=== PATIENT | female | born 1940 | race Caucasian/White ===

== ENCOUNTER 2024-12-19 10:49 | Inpatient (IN) | payer MEDICARE ==
[2024-12-19] VITALS (23 sets, daily range): BP systolic 67–141; BP diastolic 30–121; TEMP 97.6; O2SAT 96–100
[~2024-12-19] VITALS: Ht 160 cm; Wt 59.0 kg
[2024-12-19] MEDS ORDERED: PANTOPRAZOLE SODIUM 40 MG VIAL ONE (11:15)
[2024-12-19 11:30] LABS: BASOPHILS # (AUTO) 0.1 K/UL (0.0-0.2); BASOPHILS % (AUTO) 1.1 % (0.0-2.0); EOSINOPHILS # (AUTO) 0.1 K/uL (0.0-0.7); EOSINOPHILS % (AUTO) 0.5 % (0.0-7.0); LYMPHOCYTES # (AUTO) 1.4 K/uL (0.8-4.8); LYMPHOCYTES % (AUTO) 12.7 % (20.5-51.5); MEAN CORPUSCULAR HEMOGLOBIN 28.4 uug (24.7-32.8); MEAN CORPUSCULAR HGB CONC 32 g/dL (32.3-35.6); MEAN CORPUSCULAR VOLUME 88.1 fL (75.5-95.3); MONOCYTES # (AUTO) 0.9 K/uL (0.1-1.30); MONOCYTES % (AUTO) 7.9 % (0.0-11.0); NEUTROPHILS # (AUTO) 8.5 K/uL (1.8-8.9); NEUTROPHILS % (AUTO) 77.8 % (38.5-71.5); PLATELET COUNT (AUTO) 345 K/uL (179-408)
[2024-12-19] MEDS: PANTOPRAZOLE SODIUM 40 MG VIAL IV ONE (11:40)
[2024-12-19] MEDS: IV NORMAL SALINE 1000 ML BAG IV ONE (11:40)
[2024-12-19 11:41] LABS: CALCIUM 7.3 mg/dL (8.5-10.1); CARBON DIOXIDE 25 mmol/L (21-32); CHLORIDE 111 mmol/L (98-107); CREATININE 0.7 mg/dL (0.6-1.3); GLUCOSE 131 mg/dL (74-106); SODIUM SERUM 144 mmol/L (136-145); UREA NITROGEN, BLOOD 42 mg/dL (7-18)
[2024-12-19 11:44] LABS: DIFFERENTIAL COMMENT 1; RED BLOOD CELL COUNT(AUTO) 1.89 MIL/uL (3.63-4.92)
[2024-12-19 11:47] LABS: HEMATOCRIT 16.7 % (31.2-41.9); HEMOGLOBIN 5.4 g/dL (10.9-14.3)
[2024-12-19 12:05] LABS: ALANINE AMINOTRANSFERASE 6 U/L (14-59); ALKALINE PHOSPHATASE 56 U/L (50-136); ASPARTATE AMINOTRANSFERASE 10 U/L (15-37); BILIRUBIN,DIRECT 0.1 mg/dL (0.0-0.2); BILIRUBIN,TOTAL 0.3 mg/dL (0.2-1.0); TOTAL PROTEIN, SERUM 4.1 g/dL (6.4-8.2)
[2024-12-19 12:32] LABS: ALBUMIN 1.1 g/dL (3.4-5.0)
[2024-12-19] MEDS: PANTOPRAZOLE SODIUM IV 80 MG in IV DEXTROSE 5% 500 ML IV ONE (13:45)
[2024-12-19] MEDS ORDERED: ACETAMINOPHEN 325 MG TABLET PO PRN (14:15)
[2024-12-19] MEDS ORDERED: PANTOPRAZOLE SODIUM IV 80 MG in IV DEXTROSE 5% 500 ML IV SCH (14:15)
[2024-12-19] MEDS ORDERED: REMEDY ESSENTIAL ZINC PASTE 113 GM TP PRN (14:15)
[2024-12-19 15:52] LABS: ANISOCYTOSIS 2+; BAND % (MANUAL) 4 % (0-10); EOSINOPHILS % (MANUAL) 1 % (0-8); LYMPHOCYTES % (MANUAL) 14 % (20-40); MONOCYTES % (MANUAL) 7 % (2-10); NEUTROPHILS % (MANUAL) 74 % (42-75); PLATELET ESTIMATE ADEQUATE
[2024-12-19 18:19] LABS: HEMATOCRIT 15.8 % (31.2-41.9); HEMOGLOBIN 5.3 g/dL (10.9-14.3)
[2024-12-19] MEDS: IV NS 1000 ML 1,000 ML IV PRN (20:04)
[2024-12-19] MEDS: PANTOPRAZOLE SODIUM 40 MG VIAL IV SCH (20:04)
[2024-12-19] MEDS: ONDANSETRON 4 MG/2 ML VIAL IV PRN (20:56)
[2024-12-19] MEDS: IV NORMAL SALINE 500 ML IV ONE (22:29)
[2024-12-19] MEDS: PHENYLEPHRINE 10 MG/1 ML VIAL ONE (22:33)
[2024-12-19] MEDS: PHENYLEPHRINE IV 50 MG in IV NORMAL SALINE 245 ML IV PRN (22:41)
[2024-12-19] MEDS ORDERED: VASOPRESSIN 20 UNIT/ML VIAL ONE (22:55)
[2024-12-19] MEDS: METOCLOPRAMIDE HCL 10 MG/2 ML VIAL IV SCH (23:00)
[2024-12-19] MEDS: NOREPINEPHRINE 8MG/NS 250ML 250 ML IV PRN (23:06)
[2024-12-19] MEDS: PROPOFOL 100 ML IV PRN (23:34)
[2024-12-20] VITALS (87 sets, daily range): BP systolic 38–147; BP diastolic 13–86; TEMP 97.4–98.7; O2SAT 98–100
[2024-12-20] MEDS: EPINEPHRINE 1:10,000 1 MG/10 ML DISP.SYRIN IV ONE (00:19)
[2024-12-20 00:37] LABS: HEMATOCRIT 25.8 % (31.2-41.9); HEMOGLOBIN 7.9 g/dL (10.9-14.3)
[2024-12-20] MEDS: AMIODARONE HCL IV 150 MG in IV DEXTROSE 5% 100 ML IV ONE (01:06)
[2024-12-20] MEDS: AMIODARONE HCL 150 MG/3 ML VIAL IV ONE ×2 (01:13→01:14)
[2024-12-20] MEDS: AMIODARONE HCL IV 450 MG in IV DEXTROSE 5% 250 ML IV PRN (01:21)
[2024-12-20 01:28] LABS: ABG BASE EXCESS -12.6 mmol/L (-2.0-3.0); ABG HCO3 13.3 mmol/L (21.0-28.0); ABG PCO2 30.4 mmHg (32.0-45.0); ABG PH 7.259 (7.350-7.450); ABG PO2 353.2 mmHg (83.0-108.0); ABG SITE RIGHT RADIAL; ABG TOTAL HEMOGLOBIN 9.1 G/dL (12.0-16.0); AaDO2 99.7 mmHg; COHb 0.3 % (0.5-1.5); MetHb 0.5 % (0.0-1.5); O2Hb 98.4 % (94.0-98.0); VT, ABG 400 mL
[2024-12-20] MEDS: ALBUMIN HUMAN 25% 100 ML IV ONE (01:47)
[2024-12-20] MEDS: VASOPRESSIN 40 UNIT in IV NORMAL SALINE 40 ML IV PRN (02:40)
[2024-12-20] MEDS: PHENYLEPHRINE 10 MG/1 ML VIAL ONE ×2 (02:42→06:44)
[2024-12-20] MEDS: VASOPRESSIN 20 UNIT/ML VIAL ONE (02:42)
[2024-12-20 02:58] LABS: HEMATOCRIT 26.6 % (31.2-41.9); HEMOGLOBIN 8.7 g/dL (10.9-14.3)
[2024-12-20 05:20] LABS: HEMOGLOBIN 9.2 g/dL (10.9-14.3); LYMPHOCYTES # (AUTO) 1.5 K/uL (0.8-4.8)
[2024-12-20 05:25] LABS: BASOPHILS # (AUTO) 0.2 K/UL (0.0-0.2); BASOPHILS % (AUTO) 0.4 % (0.0-2.0); HEMATOCRIT 28.4 % (31.2-41.9); LYMPHOCYTES % (AUTO) 2.6 % (20.5-51.5); MEAN CORPUSCULAR HEMOGLOBIN 28.9 uug (24.7-32.8); MEAN CORPUSCULAR HGB CONC 33 g/dL (32.3-35.6); MEAN CORPUSCULAR VOLUME 89.1 fL (75.5-95.3); MONOCYTES # (AUTO) 4.6 K/uL (0.1-1.30); MONOCYTES % (AUTO) 8.2 % (0.0-11.0); NEUTROPHILS # (AUTO) 49.9 K/uL (1.8-8.9); NEUTROPHILS % (AUTO) 88.8 % (38.5-71.5); PLATELET COUNT (AUTO) 158 K/uL (179-408); RED BLOOD CELL COUNT(AUTO) 3.19 MIL/uL (3.63-4.92); RED CELL DISTRIBUTION WIDTH 15.8 % (12.3-17.7)
[2024-12-20 05:30] LABS: CALCIUM 6.6 mg/dL (8.5-10.1); CARBON DIOXIDE 15 mmol/L (21-32); CHLORIDE 110 mmol/L (98-107); CREATININE 1.2 mg/dL (0.6-1.3); GLUCOSE 208 mg/dL (74-106); MAGNESIUM 1.9 mg/dL (1.8-2.4); PHOSPHOROUS 6.1 mg/dL (2.5-4.9); POTASSIUM 5.1 mmol/L (3.5-5.1); SODIUM SERUM 141 mmol/L (136-145); UREA NITROGEN, BLOOD 44 mg/dL (7-18)
[2024-12-20 05:43] LABS: DIFFERENTIAL COMMENT 1
[2024-12-20 05:44] LABS: WHITE BLOOD COUNT (AUTO) 56.3 K/uL (3.8-11.8)
[2024-12-20 06:16] LABS: ANISOCYTOSIS 1+; HYPOCHROMASIA 1+; LYMPHOCYTES % (MANUAL) 3 % (20-40); MONOCYTES % (MANUAL) 6 % (2-10); NEUTROPHILS % (MANUAL) 91 % (42-75); PLATELET ESTIMATE ADEQUATE
[2024-12-20] MEDS ORDERED: PIPERACILLIN SODIUM/TAZOBACTAM 4.5 G in IV DEXTROSE 5% 50 ML IV SCH (07:15)
[2024-12-20] MEDS: IV NS 1000 ML 1,000 ML IV ONE (08:00)
[2024-12-20] MEDS: SODIUM BICARBONATE 8.4% 50 MEQ/50 ML DISP.SYRIN IV ONE (08:11)
[2024-12-20] MEDS: PIPERACILLIN SODIUM/TAZOBACTAM 3.375 G in IV DEXTROSE 5% 100 ML IV SCH (08:11)
[2024-12-20 08:29] LABS: ABG BASE EXCESS -13.8 mmol/L (-2.0-3.0); ABG HCO3 12.5 mmol/L (21.0-28.0); ABG PCO2 30.6 mmHg (32.0-45.0); ABG PH 7.229 (7.350-7.450); ABG PO2 161.4 mmHg (83.0-108.0); ABG SITE RIGHT RADIAL; AaDO2 98.8 mmHg; COHb 0.3 % (0.5-1.5); MetHb 0.5 % (0.0-1.5); O2Hb 97.9 % (94.0-98.0); VT, ABG 400 mL
[2024-12-20] MEDS: IV LACTATED RINGERS SOLUTION 1,000 ML IV PRN (09:11)
[2024-12-20] MEDS: NOREPINEPHRINE BITARTRATE 32 MG in IV NORMAL SALINE 218 ML IV PRN (10:41)
[2024-12-20] MEDS: SODIUM BICARBONATE 8.4% 150 MEQ in IV D5W 1000ML 1,000 ML IV PRN (11:48)
[2024-12-20 14:46] LABS: HEMOGLOBIN 10.4 g/dL (10.9-14.3); PLATELET COUNT (AUTO) 154 K/uL (179-408)
[2024-12-20 14:49] LABS: BASOPHILS % (AUTO) 0.1 % (0.0-2.0); HEMATOCRIT 31.5 % (31.2-41.9); LYMPHOCYTES # (AUTO) 1.3 K/uL (0.8-4.8); LYMPHOCYTES % (AUTO) 2.4 % (20.5-51.5); MEAN CORPUSCULAR HEMOGLOBIN 28.6 uug (24.7-32.8); MEAN CORPUSCULAR HGB CONC 33 g/dL (32.3-35.6); MEAN CORPUSCULAR VOLUME 86.5 fL (75.5-95.3); MONOCYTES # (AUTO) 2.7 K/uL (0.1-1.30); MONOCYTES % (AUTO) 5.1 % (0.0-11.0); NEUTROPHILS % (AUTO) 92.4 % (38.5-71.5); RED BLOOD CELL COUNT(AUTO) 3.65 MIL/uL (3.63-4.92); RED CELL DISTRIBUTION WIDTH 15.7 % (12.3-17.7)
[2024-12-20 14:52] LABS: DIFFERENTIAL COMMENT 1
[2024-12-20 15:42] LABS: BAND % (MANUAL) 1 % (0-10); LYMPHOCYTES % (MANUAL) 3 % (20-40); MONOCYTES % (MANUAL) 6 % (2-10); NEUTROPHILS % (MANUAL) 90 % (42-75); PLATELET ESTIMATE ADEQUATE
[2024-12-20 15:43] LABS: ANISOCYTOSIS 1+; OVALOCYTES 1+
[2024-12-20 15:44] LABS: TEAR DROP CELLS OCC
[2024-12-20] MEDS ORDERED: VASOPRESSIN 20 UNIT/ML VIAL ONE (19:58)
== END 2024-12-20 20:00 | disposition short-term general hospital (02) | DRG 377 ==
LOC: ER 10:49 → CCU 16:42
PROVIDERS: ADMIT Internal Medicine; ATTEND Internal Medicine
PROC: 06HY33Z Insertion of Infusion Device into Lower Vein, Percutaneous Approach (ICD-10-PCS; 2024-12-19)
PROC: 30233N1 Transfusion of Nonautologous Red Blood Cells into Peripheral Vein, Percutaneous Approach (ICD-10-PCS; 2024-12-19)
PROC: 0D9670Z Drainage of Stomach with Drainage Device, Via Natural or Artificial Opening (ICD-10-PCS; 2024-12-19)
PROC: 0DJ08ZZ Inspection of Upper Intestinal Tract, Via Natural or Artificial Opening Endoscopic (ICD-10-PCS; principal; 2024-12-19 23:00)
PROC: 30233K1 Transfusion of Nonautologous Frozen Plasma into Peripheral Vein, Percutaneous Approach (ICD-10-PCS; 2024-12-20)
DX: K26.0 Acute duodenal ulcer with hemorrhage (principal); J96.01 Acute respiratory failure with hypoxia; R57.1 Hypovolemic shock; D62 Acute posthemorrhagic anemia; I50.32 Chronic diastolic (congestive) heart failure; J98.11 Atelectasis; I42.9 Cardiomyopathy, unspecified; E87.20 Acidosis, unspecified; N17.9 Acute kidney failure, unspecified; C50.911 Malignant neoplasm of unspecified site of right female breast; I27.20 Pulmonary hypertension, unspecified; I25.2 Old myocardial infarction; E83.51 Hypocalcemia; E88.09 Other disorders of plasma-protein metabolism, not elsewhere classified; I11.0 Hypertensive heart disease with heart failure; I48.91 Unspecified atrial fibrillation; K21.9 Gastro-esophageal reflux disease without esophagitis; I07.1 Rheumatic tricuspid insufficiency; I25.10 Atherosclerotic heart disease of native coronary artery without angina pectoris; Z74.01 Bed confinement status; S81.802A Unspecified open wound, left lower leg, initial encounter; S81.801A Unspecified open wound, right lower leg, initial encounter; X58.XXXA Exposure to other specified factors, initial encounter; Y92.89 Other specified places as the place of occurrence of the external cause
CPT/HCPCS: 36415; 36600; 71045; 82803; 83735; 84100; 84484; 85018; 85025; 85610; 85730; 86850; 86900; 86901; 86920; 93307; 94002; 94003; 94640; 94760; A4606; G0378; J0171; J0282; J2405; J2470; J2543; J2765; J3490; J7040; J7050; J7060; J7070; J7120; P9016; P9047; P9059